=== PATIENT | female | born 1960 | race Caucasian/White ===

== ENCOUNTER 2018-04-09 06:12 | Inpatient (IN) | payer OTHER ==
[~2018-04-09] VITALS: Ht 175.3 cm; Wt 66.0 kg
[2018-04-09] VITALS (11 sets, daily range): BP systolic 87–136; BP diastolic 48–78; PULSE 4–70; RESP 12–20; TEMP 97.4–98.2; O2SAT 89–100
--- NOTE | 2018-04-09 07:10 | PD ---
HPI Chief Complaint: Pain: Acute or Chronic Time Seen by Provider: 07:04 Travel History International Travel<30 days: No Contact w/Intl Traveler<30days: No Traveled to known affect area: No History of Present Illness HPI This 57-year-old female is complaining of pain in the right flank and upper abdomen. She started having pain in the flank area yesterday around 1:00. It happened right after lunch. The pain was fairly persistent but not severe at that time. She has not taken Naprosyn tried some heat but it did not help. She was restless through the night. She says that at 5:00 this morning she woke up with increasing pain in the flank area and also the right upper quadrant. She has fairly persistent pain gets an occasional sharp pain that is quite severe. She has been nauseated but has not vomited. She has a history of tubal ligation and appendectomy. She has never had a kidney stone or gallbladder trouble. She says the pain is quite severe at this time and constant PFSH Past Medical History Hepatitis: Yes (HEP C: "I WAS CURED") Tetanus Vaccination: Unknown ?: Not Menopausal: Yes : 3 Para: 2 : 1 Ovarian Cysts: Yes Tubal Ligation: Yes Past Surgical History Surgical History: Unable to Obtain Appendectomy: Yes Eye Surgery: Yes (LASIK) Social History Alcohol Use: Yes ("A COUPLE OF TIMES A WEEK") Tobacco Use: Yes (11/05 PPD) Substance Use: No Allergies-Medications (Allergen,Severity, Reaction): Coded Allergies: No Known Allergies (Unverified , 04/09/18) Reported Meds & Prescriptions Reported Meds & Active Scripts Active No Active Prescriptions or Reported Medications Review of Systems Except as stated in HPI: all other systems reviewed are Neg General / Constitutional: No: Fever, Chills Eyes: No: Diploplia, Blurred Vision HENT: No: Headaches Cardiovascular: No: Chest Pain or Discomfort Respiratory: No: Cough, Shortness of Breath Gastrointestinal: Positive: Nausea, Abdominal Pain Genitourinary: Positive: Flank Pain Musculoskeletal: No: Myalgias, Arthralgias Skin: No Rash, No Itching Neurologic: No: Weakness, Dizziness Hematologic/Lymphatic: No: Easy Bruising Physical Exam Narrative GENERAL: Well-developed female. She is uncomfortable with pain SKIN: Focused skin assessment warm/dry. HEAD: Atraumatic. Normocephalic. EYES: Pupils equal and round. No scleral icterus. No injection or drainage. ENT: No nasal bleeding or discharge. Mucous membranes pink and moist. NECK: Trachea midline. No JVD. CARDIOVASCULAR: Regular rate and rhythm. No murmur appreciated. RESPIRATORY: No accessory muscle use. Clear to auscultation. Breath sounds equal bilaterally. GASTROINTESTINAL: Abdomen soft, there is some right upper quadrant and epigastric tenderness nondistended. Hepatic and splenic margins not palpable. MUSCULOSKELETAL: No obvious deformities. No clubbing. No cyanosis. No edema. NEUROLOGICAL: Awake and alert. No obvious cranial nerve deficits. Motor grossly within normal limits. Normal speech. PSYCHIATRIC: Appropriate mood and affect; insight and judgment normal. Data Data Last Documented VS Vital Signs Date Time Temp Pulse Resp B/P (MAP) Pulse Ox O2 Delivery O2 Flow Rate FiO2 04/09/18 09:30 69 18 93/48 (63) 96 Room Air 04/09/18 08:32 2.00 04/09/18 06:17 97.4 Orders Orders Complete Blood Count With Diff (04/09/18 07:04) Comprehensive Metabolic Panel (04/09/18 07:04) Lipase (04/09/18 07:04) Urinalysis - C+S If Indicated (04/09/18 07:04) Sodium Chlor 0.9% 1000 Ml Inj (Ns 1000 M (04/09/18 07:15) Ondansetron Inj (Zofran Inj) (04/09/18 07:15) Ketorolac Inj (Toradol Inj) (04/09/18 07:15) Hydromorphone Pf Inj (Dilaudid Pf Inj) (04/09/18 08:15) Ct Abd/Pel W Iv Contrast(Rout) (04/09/18 08:38) Urine Culture (04/09/18 08:10) Iohexol 350 Inj (Omnipaque 350 Inj) (04/09/18 09:19) Us Abdomen Gallbladder (04/09/18 09:59) Ceftriaxone Inj (Rocephin Inj) (04/09/18 10:15) Labs Laboratory Tests Test 04/09/18 07:17 04/09/18 08:10 White Blood Count 4.9 TH/MM3 Red Blood Count 4.29 MIL/MM3 Hemoglobin 14.4 GM/DL Hematocrit 42.4 % Mean Corpuscular Volume 98.9 FL Mean Corpuscular Hemoglobin 33.5 PG Mean Corpuscular Hemoglobin Concent 33.8 % Red Cell Distribution Width 12.4 % Platelet Count 170 TH/MM3 Mean Platelet Volume 8.8 FL Neutrophils (%) (Auto) 38.9 % Lymphocytes (%) (Auto) 41.0 % Monocytes (%) (Auto) 9.4 % Eosinophils (%) (Auto) 9.5 % Basophils (%) (Auto) 1.2 % Neutrophils # (Auto) 1.9 TH/MM3 Lymphocytes # (Auto) 1.9 TH/MM3 Monocytes # (Auto) 0.5 TH/MM3 Eosinophils # (Auto) 0.5 TH/MM3 Basophils # (Auto) 0.1 TH/MM3 CBC Comment DIFF FINAL Differential Comment Blood Urea Nitrogen 15 MG/DL Creatinine 0.67 MG/DL Random Glucose 112 MG/DL Total Protein 7.1 GM/DL Albumin 3.9 GM/DL Calcium Level 9.0 MG/DL Alkaline Phosphatase 45 U/L Aspartate Amino Transf (AST/SGOT) 14 U/L Alanine Aminotransferase (ALT/SGPT) 19 U/L Total Bilirubin 0.6 MG/DL Sodium Level 138 MEQ/L Potassium Level 4.1 MEQ/L Chloride Level 106 MEQ/L Carbon Dioxide Level 25.0 MEQ/L Anion Gap 7 MEQ/L Estimat Glomerular Filtration Rate 91 ML/MIN Lipase 222 U/L Urine Collection Type CLEAN CATCH Urine Color YELLOW Urine Turbidity CLEAR Urine pH 6.0 Urine Specific [place] 1.025 Urine Protein NEG mg/dL Urine Glucose (UA) NEG mg/dL Urine Ketones NEG mg/dL Urine Occult Blood NEG Urine Nitrite NEG Urine Bilirubin NEG Urine Urobilinogen 0.2 MG/DL Urine Leukocyte Esterase SMALL Urine RBC 0-3 /hpf Urine WBC 15-19 /hpf Urine Squamous Epithelial Cells 0-5 /hpf Urine Calcium Oxalate Crystals MANY /hpf Urine Bacteria FEW /hpf Microscopic Urinalysis Comment CULTURE INDICATED MDM Medical Decision Making Medical Screen Exam Complete: Yes Emergency Medical Condition: Yes Medical Record Reviewed: Yes Differential Diagnosis Differential includes renal colic, cholecystitis, Narrative Course Hemoglobin is 14 with a white count of 4.9. Liver function tests are normal. Lipase is 222. Urinalysis shows 15-[address] scan of the abdomen and pelvis was obtained. There is circumferential wall thickening involving the duodenum and proximal jejunum. Differential includes acute inflammatory infectious process versus infiltrative process such as lymphoma. I have discussed the case with Dr. Castillo Scripts No Active Prescriptions or Reported Meds Chidi Wright MD Apr 09, 2018 07:10
[2018-04-09] MEDS ORDERED: SODIUM CHLOR 0.9% 1000 ML INJ 1,000 ML IV ONE (07:15)
[2018-04-09] MEDS ORDERED: ONDANSETRON HCL 4 MG/2 ML VIAL IV PUSH ONE ×2 (07:15→10:30)
[2018-04-09] MEDS ORDERED: KETOROLAC TROMETHAMINE 30 MG/ML (IVP) VIAL IV PUSH ONE (07:15)
[2018-04-09 07:23] LABS: AUTOMATED NEUTROPHIL # 1.9 TH/MM3 (1.8-7.7); BASOPHIL # 0.1 TH/MM3 (0-0.2); BASOPHIL % 1.2 % (0.0-2.0); EOSINOPHIL # 0.5 TH/MM3 (0-0.4); EOSINOPHIL % 9.5 % (0.0-4.0); HEMATOCRIT 42.4 % (35.0-46.0); HEMOGLOBIN 14.4 GM/DL (11.6-15.3); LYMPHOCYTE # 1.9 TH/MM3 (1.0-4.8); MEAN CELL VOLUME 98.9 FL (80.0-100.0); MEAN CORPUSCULAR HEMOGLOBIN 33.5 PG (27.0-34.0); MEAN CORPUSCULAR HGB CONC 33.8 % (32.0-36.0); MEAN PLATELET VOLUME 8.8 FL (7.0-11.0); MONO % 9.4 % (0.0-8.0); MONOCYTE # 0.5 TH/MM3 (0-0.9); NEUT % 38.9 % (16.0-70.0); PLATELET COUNT 170 TH/MM3 (150-450); RED BLOOD COUNT 4.29 MIL/MM3 (4.00-5.30); RED CELL DISTRIBUTION WIDTH 12.4 % (11.6-17.2); WHITE BLOOD COUNT 4.9 TH/MM3 (4.0-11.0)
[2018-04-09 07:33] LABS: CHLORIDE 106 MEQ/L (98-107); SODIUM (NA) 138 MEQ/L (136-145)
[2018-04-09 07:37] LABS: ALBUMIN 3.9 GM/DL (3.4-5.0)
[2018-04-09 07:38] LABS: BLOOD UREA NITROGEN 15 MG/DL (7-18); GLUCOSE,RANDOM 112 MG/DL (74-106)
[2018-04-09 07:40] LABS: ALT (GPT) 19 U/L (10-53); AST (GOT) 14 U/L (15-37)
[2018-04-09 07:41] LABS: CREATININE 0.67 MG/DL (0.50-1.00); GLOMERULAR FILTRATION RATE 91 ML/MIN (>89)
[2018-04-09 07:42] LABS: TOTAL BILIRUBIN ADULT 0.6 MG/DL (0.2-1.0); TOTAL PROTEIN 7.1 GM/DL (6.4-8.2)
[2018-04-09 07:43] LABS: ALKALINE PHOSPHATASE 45 U/L (45-117)
[2018-04-09] MEDS ORDERED: HYDROmorphone HCL PF 2 MG/ML VIAL IV PUSH ONE (08:15)
[2018-04-09 08:27] LABS: BILIRUBIN, URINE NEG (NEG); BLOOD, URINE NEG (NEG); GLUCOSE,URINE NEG (NEG); KETONE, URINE NEG (NEG); NITRITE,URINE NEG (NEG); URINE COLOR YELLOW (YELLW/STRAW); URINE LEUKOCYTE ESTERASE SMALL (NEG)
[2018-04-09 08:33] LABS: BACTERIA, URINE FEW /hpf; CALCIUM OXALATE CRYSTALS,URINE MANY /hpf; RBC, URINE 0-3 /hpf (0-3); SQUAMOUS EPITHELIAL CELL URINE 0-5 /hpf (0-5); WBC, URINE 15-19 /hpf (0-5)
[2018-04-09] MEDS ORDERED: IOHEXOL 350 MG/ML 10 ML VIAL (for RAD DIAG) IVCONTRAST ONE (09:19)
--- NOTE | 2018-04-09 09:33 | RADRPT ---
EXAM DATE: 04/09/2018 9:20 AM EDT AGE/SEX: 57 years / Female INDICATIONS: Right flank and right upper quadrant pain. CLINICAL DATA: This is the patient's initial encounter. Patient reports that signs and symptoms have been present for 1 day and indicates a pain score of 8/10. MEDICAL/SURGICAL HISTORY: Hepatitis C. Ovarian cysts. Appendectomy. Tubal ligation. ORAL CONTRAST: No oral contrast ingested. RADIATION DOSE: 6.40 CTDI (mGy) COMPARISON: No prior exams available for comparison. TECHNIQUE: Multiple contiguous axial images were obtained through the abdomen and pelvis following b olus infusion of 90 ml Omnipaque 350 (iohexol) nonionic water-soluble contrast as a single exam dos e. No oral contrast ingested. Using automated exposure control and adjustment of the mA and/or kV ac cording to patient size, the radiation dose was kept as low as reasonably achievable to obtain optima l diagnostic quality images. FINDINGS: Lower Lungs: The visualized lower lungs are clear. Liver: The liver has a homogeneous density . Multiple hepatic cysts. The largest is in the dome measu ring 3.2 cm with Hounsfield units 6. There is no dilation of the biliary tree. Spleen: Homogeneous density without enlargement. Pancreas: Unremarkable without mass or calcification. Kidneys: Normal in size and shape. No evidence of mass or hydronephrosis. Adrenal Glands: Unremarkable. Aorta: The aorta and proximal iliac vessels are grossly unremarkable without aneurysmal dilation. Bowel/Mesentery: Circumferential wall thickening without surrounding inflammatory change involving t he duodenum and proximal jejunum. The remaining bowel loops are normal. Colon is unremarkable. No kristyn e air or free fluid. Stomach is unremarkable and nondilated. Abdominal Wall: Intact. Retroperitoneum: No evidence of adenopathy in the retrocrural, para-aortic, or deep pelvic regions. Bladder: Contours are smooth. Reproductive Organs: There is a dilated gonadal vein on the left measuring 11 mm with varicosities i nvolving the pelvis most pronounced on the left. No abnormal masses or calcifications seen. Inguinal: The inguinal region is unremarkable without evidence of adenopathy. Bony Structures: Unremarkable. CONCLUSION: 1. Circumferential wall thickening involving the duodenum and proximal jejunum. Differential diagnos tic considerations include an acute inflammatory or infectious process versus an infiltrating process such as lymphoma. I see no splenomegaly or adenopathy. 2. 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 Clinical evaluation for any signs of p elvic congestion syndrome suggested. 3. Hepatic cysts. Electronically signed by: Azam Landaverde MD 04/09/2018 9:31 AM EDT
[2018-04-09] MEDS ORDERED: cefTRIAXone INJ 1,000 MG in SODIUM CHLORIDE 0.9% INJ 100 ML IV ONE (10:15)
[2018-04-09] MEDS ORDERED: SENNOSIDES 8.6 MG TAB PO PRN (10:30)
[2018-04-09] MEDS ORDERED: NALOXONE HCL 0.4 MG/ML AMP IV PUSH PRN (10:30)
[2018-04-09] MEDS ORDERED: MORPHINE SULFATE 4 MG/ML INJ IV PUSH PRN (10:30)
[2018-04-09] MEDS ORDERED: SODIUM CHLORIDE 0.9% FLUSH 10 ML FLUSH IV FLUSH PRN (10:30)
[2018-04-09] MEDS ORDERED: MAGNESIUM HYDROXIDE SUSP 30 ML CUP PO PRN (10:30)
[2018-04-09] MEDS ORDERED: LACTULOSE SYRUP 20 GM/30 ML CUP PO PRN (10:30)
[2018-04-09] MEDS ORDERED: BISACODYL 10 MG SUPP RECTAL PRN (10:30)
[2018-04-09] MEDS ORDERED: ACETAMINOPHEN/HYDROcodone 325 MG/10 MG TAB PO PRN (10:30)
[2018-04-09] MEDS ORDERED: SODIUM CHLORID 0.9% 500 ML INJ 500 ML IV ONE (11:00)
[2018-04-09] MEDS ORDERED: METOCLOPRAMIDE HCL 10 MG/2 ML VIAL IV PUSH PRN (11:00)
[2018-04-09] MEDS: SODIUM CHLOR 0.9% 1000 ML INJ 1,000 ML IV SCH ×2 (11:33→21:00)
--- NOTE | 2018-04-09 11:37 | RADRPT ---
EXAM DATE: 04/09/2018 11:34 AM EDT AGE/SEX: 57 years / Female INDICATIONS: Right upper quadrant pain. CLINICAL DATA: This is the patient's initial encounter. Patient reports that signs and/or symptoms h ave been present for 1 day and indicates a pain score of 7/10. MEDICAL/SURGICAL HISTORY: Hepatitis C. Ovarian cysts. Appendectomy. Tubal ligation. COMPARISON: No prior exams available for comparison. MEASUREMENTS (cm x cm x cm): Liver:__ 17.3 cm length Common Bile Duct:__ 3mm FINDINGS: Liver: 15 mm cyst in the right lobe of the liver. No suspicious mass. No biliary ductal dilatation. Portal Vein: Hepatopedal flow seen in portal vein. Common Duct: No intraluminal mass or stone visualized. Gallbladder: Demonstrates no wall thickening or pericholecystic fluid. No stones visualized. Pancreas: The visualized portions are within normal limits Right Kidney: No mass or hydronephrosis Other: None. CONCLUSION: Small right lobe liver cyst. Otherwise unremarkable. Electronically signed by: Lawson Shaikh MD 04/09/2018 11:36 AM EDT
[2018-04-09] MEDS: PANTOPRAZOLE SODIUM 40 MG VIAL IV PUSH SCH (13:00)
--- NOTE | 2018-04-09 16:12 | HHI.HP ---
[facility] Primary Care Physician No Primary Care Physician Admission Diagnosis ABDOMINAL PAIN Diagnoses: Travel History International Travel<30 Days: No Contact w/Intl Traveler <30 Da: No Traveled to Known Affected Are: No History of Present Illness 57-year-old female with a history of appendectomy, who presents with onset of sharp constant right-sided flank pain worse with movement around 1 PM yesterday. She then took 500 mg of naproxen by mouth twice last night. She woke up this morning with continued constant right-sided flank pain, as well as epigastric pain. She reports nausea upon waking this morning, however this has resolved after self-induced emesis. Denies any hemoptysis. Denies any constipation or diarrhea. Denies any dysuria. Denies any fevers, however did get a sunburn yesterday and has been having some chills secondary to this. Review of Systems Except as stated in HPI: all other systems reviewed are Neg Past Family Social History Past Medical History Patient denies any significant past medical history Past Surgical History History of Lasix eye surgery. Bilateral tubal ligation. Appendectomy. Reported Medications Patient does not take any regular medications. She did take naproxen last night. Allergies: Coded Allergies: No Known Allergies (Unverified , 04/09/18) Family History Patient was adopted Social History Patient smokes one half pack per day for the past 40 years Patient drinks 2 drinks per day. Denies any history of alcohol abuse. Denies alcohol withdrawal symptoms. Denies any illicit drug use. Physical Exam Vital Signs Vital Signs Date Time Temp Pulse Resp B/P (MAP) Pulse Ox O2 Delivery O2 Flow Rate FiO2 04/09/18 13:24 98.2 70 20 93/48 (63) 100 04/09/18 11:48 04/09/18 11:40 46 18 87/56 (66) 97 Room Air 04/09/18 11:25 44 18 91/54 (66) 98 Room Air 04/09/18 11:00 64 17 87/59 (68) 99 Room Air 04/09/18 09:30 69 18 93/48 (63) 96 Room Air 04/09/18 08:48 97 Room Air 04/09/18 08:32 96 Nasal Cannula 2.00 04/09/18 08:30 56 12 100/62 (75) 89 Room Air 04/09/18 07:34 61 16 128/78 (95) 99 Room Air 04/09/18 06:17 97.4 63 14 136/78 (97) 99 Physical Exam GENERAL: This is a well-nourished, well-developed patient, in no apparent distress. Alert and oriented 3. SKIN: No rashes, ecchymoses or lesions. Cool and dry. HEAD: Atraumatic. Normocephalic. No temporal or scalp tenderness. EYES: Pupils equal round and reactive. Extraocular motions intact. No scleral icterus. No injection or drainage. ENT: Nose without bleeding, purulent drainage or septal hematoma. Throat without erythema, tonsillar hypertrophy or exudate. Uvula midline. Airway patent. NECK: Trachea midline. No JVD or lymphadenopathy. Supple, nontender, no meningeal signs. CARDIOVASCULAR: Regular rate and rhythm without murmurs, gallops, or rubs. RESPIRATORY: Clear to auscultation. Breath sounds equal bilaterally. No wheezes , rales, or rhonchi. GASTROINTESTINAL: Abdomen soft, non-tender, nondistended. No hepato-splenomegaly , or palpable masses. No guarding. MUSCULOSKELETAL: Extremities without clubbing, cyanosis, or edema. No joint tenderness, effusion, or edema noted. No calf tenderness. Negative Homans sign bilaterally. NEUROLOGICAL: Awake and alert. Cranial nerves II through XII intact. Motor and sensory grossly within normal limits. Five out of 5 muscle strength in all muscle groups. Normal speech. Laboratory Laboratory Tests Test 04/09/18 07:17 04/09/18 08:10 White Blood Count 4.9 Red Blood Count 4.29 Hemoglobin 14.4 Hematocrit 42.4 Mean Corpuscular Volume 98.9 Mean Corpuscular Hemoglobin 33.5 Mean Corpuscular Hemoglobin Concent 33.8 Red Cell Distribution Width 12.4 Platelet Count 170 Mean Platelet Volume 8.8 Neutrophils (%) (Auto) 38.9 Lymphocytes (%) (Auto) 41.0 Monocytes (%) (Auto) 9.4 Eosinophils (%) (Auto) 9.5 Basophils (%) (Auto) 1.2 Neutrophils # (Auto) 1.9 Lymphocytes # (Auto) 1.9 Monocytes # (Auto) 0.5 Eosinophils # (Auto) 0.5 Basophils # (Auto) 0.1 CBC Comment DIFF FINAL Differential Comment Blood Urea Nitrogen 15 Creatinine 0.67 Random Glucose 112 Total Protein 7.1 Albumin 3.9 Calcium Level 9.0 Alkaline Phosphatase 45 Aspartate Amino Transf (AST/SGOT) 14 Alanine Aminotransferase (ALT/SGPT) 19 Total Bilirubin 0.6 Sodium Level 138 Potassium Level 4.1 Chloride Level 106 Carbon Dioxide Level 25.0 Anion Gap 7 Estimat Glomerular Filtration Rate 91 Lipase 222 Urine Collection Type CLEAN CATCH Urine Color YELLOW Urine Turbidity CLEAR Urine pH 6.0 Urine Specific [place] 1.025 Urine Protein NEG Urine Glucose (UA) NEG Urine Ketones NEG Urine Occult Blood NEG Urine Nitrite NEG Urine Bilirubin NEG Urine Urobilinogen 0.2 Urine Leukocyte Esterase SMALL Urine RBC 0-3 Urine WBC 15-19 Urine Squamous Epithelial Cells 0-5 Urine Calcium Oxalate Crystals MANY Urine Bacteria FEW Microscopic Urinalysis Comment CULTURE INDICATED Date/Time Source Procedure Growth Status 04/09/18 08:10 Urine Clean Catch Urine Culture Pending Received Result Diagram: 04/09/18 0717 04/09/18 0717 Caprini VTE Risk Assessment Caprini VTE Risk Assessment: No/Low Risk (score <= 1) Caprini Risk Assessment Model Point Value = 1 Point Value = 2 Point Value = 3 Point Value = 5 Age 41-60 Minor surgery BMI > 25 kg/m2 Swollen legs Varicose veins or History of unexplained or recurrent spontaneous Oral contraceptives or hormone replacement Sepsis (< 1 month) Serious lung disease, including pneumonia (< 1 month) Abnormal pulmonary function Acute myocardial infarction Congestive heart failure (< 1 month) History of inflammatory bowel disease Medical patient at bed rest Age 61-74 Arthroscopic surgery Major open surgery (> 45 min) Laparoscopic surgery (> 45 min) Malignancy Confined to bed (> 72 hours) Immobilizing plaster cast Central venous access Age >= 75 History of VTE Family history of VTE Factor V Leiden Prothrombin [id number] Lupus anticoagulant Anticardiolipin antibodies Elevated serum homocysteine Heparin-induced thrombocytopenia Other congenital or acquired thrombophilia Stroke (< 1 month) Elective arthroplasty Hip, pelvis, or leg fracture Acute spinal cord injury (< 1 month) Prophylaxis Regimen Total Risk Factor Score Risk Level Prophylaxis Regimen 0-1 Low Early ambulation 2 Moderate Order ONE of the following: *Sequential Compression Device (SCD) *Heparin 5000 units SQ BID 3-4 Higher Order ONE of the following medications: *Heparin 5000 units SQ TID *Enoxaparin/Lovenox 40 mg SQ daily (WT < 150 kg, CrCl > 30 mL/min) *Enoxaparin/Lovenox 30 mg SQ daily (WT < 150 kg, CrCl > 10-29 mL/min) *Enoxaparin/Lovenox 30 mg SQ BID (WT < 150 kg, CrCl > 30 mL/min) AND/OR *Sequential Compression Device (SCD) 5 or more Highest Order ONE of the following medications: *Heparin 5000 units SQ TID (Preferred with Epidurals) *Enoxaparin/Lovenox 40 mg SQ daily (WT < 150 kg, CrCl > 30 mL/min) *Enoxaparin/Lovenox 30 mg SQ daily (WT < 150 kg, CrCl > 10-29 mL/min) *Enoxaparin/Lovenox 30 mg SQ BID (WT < 150 kg, CrCl > 30 mL/min) AND *Sequential Compression Device (SCD) Assessment and Plan Assessment and Plan //Suspected acute gastroenteritis With duodenal/jejunal inflammation. Patient notified of possible lymphoma diagnosis, however suspect this is unlikely at this time. = We will treat with levofloxacin and Flagyl. Chose levofloxacin in lieu of Cipro due to prolonged QTc. = GI consult pending. //Tobacco abuse. Cessation counseling provided. //Incidental finding of venous congestion pelvis on imaging. This is likely chronic and appears to be asymptomatic. Have discussed with the patient who will discuss findings with her primary care doctor. //Hypotension. With systolic blood pressures in the 80s following Dilaudid administration. Avoid IV narcotics. Close monitoring. Discussed Condition With Patient, nurse. Moses Isaacs MD Apr 09, 2018 16:12
[2018-04-09] MEDS: metroNIDAZOLE 500 MG TAB PO SCH ×2 (16:41→21:09)
[2018-04-09] MEDS: LEVOFLOXACIN 750 MG TAB PO SCH (16:41)
[2018-04-09] MEDS: DOCUSATE SODIUM 50 MG/SENNA 8.6 MG TAB PO SCH (21:00)
[2018-04-09] MEDS: SODIUM CHLORIDE 0.9% FLUSH 10 ML FLUSH IV FLUSH SCH (21:00)
[2018-04-10] MEDS: PANTOPRAZOLE SODIUM 40 MG VIAL IV PUSH SCH ×2 (01:39→13:33)
[2018-04-10] MEDS: ACETAMINOPHEN/HYDROcodone 325 MG/7.5 MG TAB PO PRN ×2 (01:51→13:33)
[2018-04-10 03:05] VITALS: BP 96/54; PULSE 49; RESP 16; TEMP 98.2; O2SAT 96
[2018-04-10 04:42] LABS: ALT (GPT) 16 U/L (10-53); AST (GOT) 11 U/L (15-37); BICARBONATE 26.1 MEQ/L (21.0-32.0); BLOOD UREA NITROGEN 8 MG/DL (7-18); CALCIUM 8.4 MG/DL (8.5-10.1); CHLORIDE 109 MEQ/L (98-107); CREATININE 0.69 MG/DL (0.50-1.00); GLOMERULAR FILTRATION RATE 88 ML/MIN (>89); GLUCOSE,RANDOM 103 MG/DL (74-106); SODIUM (NA) 143 MEQ/L (136-145)
[2018-04-10 04:44] LABS: ALKALINE PHOSPHATASE 37 U/L (45-117); TOTAL BILIRUBIN ADULT 0.6 MG/DL (0.2-1.0); TOTAL PROTEIN 5.6 GM/DL (6.4-8.2)
[2018-04-10 04:45] LABS: AUTOMATED NEUTROPHIL # 1.6 TH/MM3 (1.8-7.7); BASOPHIL % 0.7 % (0.0-2.0); EOSINOPHIL # 0.3 TH/MM3 (0-0.4); EOSINOPHIL % 6.4 % (0.0-4.0); HEMATOCRIT 35.2 % (35.0-46.0); HEMOGLOBIN 12.1 GM/DL (11.6-15.3); LYMPH % 42.2 % (9.0-44.0); LYMPHOCYTE # 1.7 TH/MM3 (1.0-4.8); MEAN CELL VOLUME 99.5 FL (80.0-100.0); MEAN CORPUSCULAR HEMOGLOBIN 34.3 PG (27.0-34.0); MEAN CORPUSCULAR HGB CONC 34.5 % (32.0-36.0); MEAN PLATELET VOLUME 8.5 FL (7.0-11.0); MONOCYTE # 0.4 TH/MM3 (0-0.9); NEUT % 39.7 % (16.0-70.0); PLATELET COUNT 122 TH/MM3 (150-450); RED BLOOD COUNT 3.54 MIL/MM3 (4.00-5.30); RED CELL DISTRIBUTION WIDTH 12.5 % (11.6-17.2)
[2018-04-10] MEDS: metroNIDAZOLE 500 MG TAB PO SCH ×2 (06:15→13:33)
[2018-04-10] MEDS: SODIUM CHLOR 0.9% 1000 ML INJ 1,000 ML IV SCH (07:00)
[2018-04-10 07:15] VITALS: BP 100/58; PULSE 53; RESP 18; TEMP 98.5; O2SAT 95
[2018-04-10] MEDS: LEVOFLOXACIN 750 MG TAB PO SCH (09:05)
[2018-04-10] MEDS: DOCUSATE SODIUM 50 MG/SENNA 8.6 MG TAB PO SCH (09:05)
[2018-04-10] MEDS: SODIUM CHLORIDE 0.9% FLUSH 10 ML FLUSH IV FLUSH SCH (09:06)
--- NOTE | 2018-04-10 09:23 | HHI.PR ---
Subjective Remarks Patient says she is feeling better. Reports that nausea is improved. Still with some right flank pain, however has improved. Denies dysuria. Denies any lightheadedness or dizziness. Objective Vital Signs Date Time Temp Pulse Resp B/P (MAP) Pulse Ox O2 Delivery O2 Flow Rate FiO2 04/10/18 07:15 98.5 53 18 100/58 (72) 95 04/10/18 03:05 98.2 49 16 96/54 (68) 96 04/09/18 23:04 98.1 66 16 89/51 (64) 96 04/09/18 19:26 56 16 102/60 (74) 99 04/09/18 15:01 99/61 (74) 04/09/18 13:24 98.2 70 20 93/48 (63) 100 04/09/18 11:48 04/09/18 11:40 46 18 87/56 (66) 97 Room Air 04/09/18 11:25 44 18 91/54 (66) 98 Room Air 04/09/18 11:00 64 17 87/59 (68) 99 Room Air 04/09/18 09:30 69 18 93/48 (63) 96 Room Air I/O 04/09/18 04/09/18 04/09/18 04/10/18 04/10/18 04/10/18 07:00 15:00 23:00 07:00 15:00 23:00 Intake Total 1090 ml 200 ml Balance 1090 ml 200 ml Intake IV Total 1090 ml 200 ml Result Diagram: 04/10/18 03304/10/18 033 Objective Remarks GENERAL: Patient sitting up in bed. Appears comfortable. SKIN: Warm and dry. HEAD: Normocephalic. EYES: No scleral icterus. No injection or drainage. NECK: Supple, trachea midline. No JVD. CARDIOVASCULAR: Regular rate and rhythm without murmurs, gallops, or rubs. RESPIRATORY: Breath sounds equal bilaterally. No accessory muscle use. GASTROINTESTINAL: Abdomen soft, non-tender, nondistended. Positive bowel sounds. MUSCULOSKELETAL: No cyanosis, or edema. BACK: Nontender without obvious deformity. No CVA tenderness. A/P Assessment and Plan //Suspected acute gastroenteritis With duodenal/jejunal inflammation. Patient notified of possible lymphoma diagnosis, however suspect this is unlikely at this time. = We will treat with levofloxacin and Flagyl. Chose levofloxacin in lieu of Cipro due to prolonged QTc. = Follow-up GI recommendations. //Tobacco abuse. Cessation counseling provided. //Incidental finding of venous congestion pelvis on imaging. This is likely chronic and appears to be asymptomatic. Have discussed with the patient who will discuss findings with her primary care doctor. //Thrombocytopenia =plt 122. This is likely dilutional as all cell lines are down. No signs of bleeding //Hypotension. With systolic blood pressures in the 80s following Dilaudid administration. Avoid IV narcotics. Close monitoring. = Blood pressure still borderline low, however likely functional. Discharge Planning Ending GI evaluation Moses Isaacs MD Apr 10, 2018 09:23
--- NOTE | 2018-04-10 11:56 | PD.CONS ---
HPI History of Present Illness This is a 57 year old slim female who was admitted to the hospital on 04/09/2018 with acute onset of symptoms in the past 24 hours of sharp right-sided back pain that radiated around into her right lower quadrant then into her left lower quadrant. Patient states she took 1 dose of naproxen which may have initiated her epigastric pain. patient also noted some epigastric pain after lower abdominal symptoms persisted with nausea and self induced emesis 1. On exam patient has no epigastric tenderness and states that the pain is resolved. Patient does note some dyspepsia approximately a year ago which was related to stressful events but took no meds. Patient states that when her stress was resolved the pain also resolved completely. Patient currently denies any diarrhea or constipation or changes in her stools, denies any current rectal bleeding or hematemesis. Patient has had 2 colonoscopies in the past for history of polyps last colonoscopy was approximately 4-5 years ago. Patient has had no previous EGD and denies any family history of colon cancer. Patient states she drinks an increased amount of sodas, and is currently on vacation in this area. Patient is currently requesting to be able to return back to her GI physician for further workup or testing. Labs include hemoglobin 12.1, WBC count 4, AST 11, ALT [address] scan shows wall thickening involving the duodenum and proximal jejunum inflammatory versus infiltrating process such as lymphoma. I see no splenomegaly or adenopathy. Hepatic cyst are noted and also noted on ultrasound gallbladder. (Mayra Dhillon) PFSH Past Medical History Patient denies any significant past medical history Past Surgical History History of Lasix eye surgery. Bilateral tubal ligation. Appendectomy. (Mayra Dhillon) Coded Allergies: No Known Allergies (Unverified , 04/09/18) Medications Administered Medications Medications (Trade) Dose Ordered Sig/Norma Route PRN Reason Start Time Stop Time Status Last Admin Dose Admin Sodium Chloride 1,000 ml @ 100 mls/hr Q10H IV 04/09/18 11:00 04/09/18 11:33 Sodium Chloride (NS Flush) 2 ml BID IV FLUSH 04/09/18 21:00 04/10/18 09:06 Metoclopramide HCl (Reglan Inj) 5 mg Q6H PRN IV PUSH NAUSEA OR VOMITING 04/09/18 11:00 04/09/18 16:41 Senna/Docusate Sodium (Valery-Colace) 1 tab BID PO 04/09/18 21:00 04/10/18 09:05 Acetaminophen/ Hydrocodone Bitart ([place] 7.5-325 Mg) 1 tab Q4H PRN PO PAIN SCALE 3 TO 6 04/09/18 10:30 04/10/18 01:51 Pantoprazole Sodium (Protonix Inj) 40 mg Q12H IV PUSH 04/09/18 13:00 04/10/18 01:39 Levofloxacin (Levaquin) 750 mg DAILY PO 04/09/18 16:00 04/10/18 09:05 Metronidazole (Flagyl) 500 mg Q8HR PO 04/09/18 16:00 04/10/18 06:15 Family History Patient was adopted No known family history of colon cancer Social History Patient smokes one half pack per day for the past 40 years Patient drinks 2 drinks per day. Denies any history of alcohol abuse. Denies alcohol withdrawal symptoms. Denies any illicit drug use. (Mayra Dhillon) Review of Systems Gastrointestinal: COMPLAINS OF: Abdominal pain (Right lower and left lower quadrant, initial pain started in right flank back area), Nausea (Mayra Dhillon) GI Exam Vitals I&O Vital Signs Date Time Temp Pulse Resp B/P (MAP) Pulse Ox O2 Delivery O2 Flow Rate FiO2 04/10/18 07:15 98.5 53 18 100/58 (72) 95 04/10/18 03:05 98.2 49 16 96/54 (68) 96 04/09/18 23:04 98.1 66 16 89/51 (64) 96 04/09/18 19:26 56 16 102/60 (74) 99 04/09/18 15:01 99/61 (74) 04/09/18 13:24 98.2 70 20 93/48 (63) 100 I/O 04/09/18 04/09/18 04/09/18 04/10/18 04/10/18 04/10/18 07:00 15:00 23:00 07:00 15:00 23:00 Intake Total 1090 ml 200 ml 500 ml Balance 1090 ml 200 ml 500 ml Intake IV Total 1090 ml 200 ml 500 ml Imaging Last Impressions Gall Bladder Ultrasound 04/09/18 0999 Signed Impressions: CONCLUSION: Small right lobe liver cyst. Otherwise unremarkable. Abdomen/Pelvis CT 04/09/18 0868 Signed Impressions: CONCLUSION: 1. Circumferential wall thickening involving the duodenum and proximal jejunum . Differential diagnostic considerations include an acute inflammatory or infec tious process versus an infiltrating process such as lymphoma. I see no splenom egaly or adenopathy. 2. 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 Clinical evaluat ion for any signs of pelvic congestion syndrome suggested. 3. Hepatic cysts. Laboratory Test 04/10/18 03:32 White Blood Count 4.0 TH/MM3 Red Blood Count 3.54 MIL/MM3 Hemoglobin 12.1 GM/DL Hematocrit 35.2 % Mean Corpuscular Volume 99.5 FL Mean Corpuscular Hemoglobin 34.3 PG Mean Corpuscular Hemoglobin Concent 34.5 % Red Cell Distribution Width 12.5 % Platelet Count 122 TH/MM3 Mean Platelet Volume 8.5 FL Neutrophils (%) (Auto) 39.7 % Lymphocytes (%) (Auto) 42.2 % Monocytes (%) (Auto) 11.0 % Eosinophils (%) (Auto) 6.4 % Basophils (%) (Auto) 0.7 % Neutrophils # (Auto) 1.6 TH/MM3 Lymphocytes # (Auto) 1.7 TH/MM3 Monocytes # (Auto) 0.4 TH/MM3 Eosinophils # (Auto) 0.3 TH/MM3 Basophils # (Auto) 0.0 TH/MM3 CBC Comment DIFF FINAL Differential Comment Blood Urea Nitrogen 8 MG/DL Creatinine 0.69 MG/DL Random Glucose 103 MG/DL Total Protein 5.6 GM/DL Albumin 3.0 GM/DL Calcium Level 8.4 MG/DL Alkaline Phosphatase 37 U/L Aspartate Amino Transf (AST/SGOT) 11 U/L Alanine Aminotransferase (ALT/SGPT) 16 U/L Total Bilirubin 0.6 MG/DL Sodium Level 143 MEQ/L Potassium Level 4.2 MEQ/L Chloride Level 109 MEQ/L Carbon Dioxide Level 26.1 MEQ/L Anion Gap 8 MEQ/L Estimat Glomerular Filtration Rate 88 ML/MIN Date/Time Source Procedure Growth Status 04/09/18 08:10 Urine Clean Catch Urine Culture Pending Received Physical Examination HEENT: General slim build normocephalic; atraumatic; no jaundice. Throat is clear. NECK: Neck is supple, no JVD, no lymphadenopathy. CHEST: Chest is clear to auscultation and percussion. CARDIAC: Regular rate and rhythm ABDOMEN: Soft, nondistended, nontender; no hepatosplenomegaly; bowel sounds are present in all four quadrants. No epigastric tenderness EXTREMITIES: No clubbing, cyanosis, or edema. SKIN: Normal; no rash; no jaundice. PROGRAM STRATEGIST: No focal deficits; alert and oriented times three. (Mayra Dhillon) Assessment and Plan Plan Burning right flank back pain radiated around to the right lower quadrant and left lower quadrant. Seem to be worse with movement and patient states recent heavy lifting of luggage. Patient took naproxen and noted epigastric discomfort with nausea and self-induced vomiting which has now resolved. Patient has a history of colonoscopy 2 for polyps no EGD in the past. No family history of colon cancer and patient does note an increased amount of sodas daily. Patient is on vacation and is requesting to follow-up with her physician when she gets home . CT scan shows wall thickening of the duodenum and proximal jejunum possible inflammatory versus infiltrating process such as lymphoma no adenopathy seen. Hepatic cyst small. Plan Maintain n.p.o. for now Consider EGD or colonoscopy but patient is requesting to follow-up when she gets back home Levaquin Flagyl PPI Monitor labs and patient's symptoms Further recommendations to follow after visit with Dr. Quintero Patient was seen per myself and Dr. Quintero, this note was written on his behalf (Mayra Dhillon) Physician Comments Agree with above assessment and plan. Thank you for the consult. (Natty Quintero MD) Mayra Dhillon Apr 10, 2018 11:56 Natty Quintero MD Apr 10, 2018 14:13
[2018-04-10 12:43] VITALS: BP 133/64; PULSE 56; RESP 18; TEMP 98.9; O2SAT 99
[2018-04-10] MEDS ORDERED: METR-1 PO (13:31)
[2018-04-10] MEDS ORDERED: LEVA750T9 PO (13:31)
[2018-04-10] MEDS ORDERED: PANT20TA2 PO (13:31)
--- NOTE | 2018-04-10 15:05 | EKG ---
Date Performed: 04/09/2018 Time Performed: 15:40:08 PTAGE: 57 years EKG: SINUS BRADYCARDIA POSSIBLE LEFT ATRIAL ENLARGEMENT BORDERLINE ECG INTERPRETATION BASED ON A DEFAULT AGE OF 42 YEARS NO PREVIOUS TRACING DOCTOR: Clovis Puckett Interpretating Date/Time 04/10/2018 15:04:42
--- NOTE | 2018-04-11 15:15 | EKG ---
Date Performed: 04/09/2018 Time Performed: 11:26:07 PTAGE: 57 years EKG: SINUS BRADYCARDIA WITH FIRST DEGREE AV BLOCK POSSIBLE LEFT ATRIAL ENLARGEMENT ABNORMAL ECG INTERPRETATION BASED ON A DEFAULT AGE OF 40 YEARS NO PREVIOUS TRACING Since the previous tracing, no significant change noted DOCTOR: Clovis Puckett Interpretating Date/Time 04/11/2018 15:12:38
== END 2018-04-10 14:01 | disposition home or self-care (01) | DRG 392 ==
LOC: PHED 06:12 → OBSVTOIN 10:27 → PHEDA 10:27 → NEPGCP 12:20 → UNDODISOB 04-10 14:01
PROVIDERS: ADMIT Internal Medicine; ATTEND Internal Medicine
DX: K52.9 Noninfective gastroenteritis and colitis, unspecified (principal); D69.6 Thrombocytopenia, unspecified; I95.9 Hypotension, unspecified; K76.89 Other specified diseases of liver; K29.80 Duodenitis without bleeding; M54.9 Dorsalgia, unspecified; I87.8 Other specified disorders of veins; F17.210 Nicotine dependence, cigarettes, uncomplicated; Z98.51 Tubal ligation status; Z86.19 Personal history of other infectious and parasitic diseases; Z90.49 Acquired absence of other specified parts of digestive tract; Z86.010 Personal history of colon polyps
CPT/HCPCS: 74177; 76705; 80053; 81001; 83690; 85025; 87086; 93005; 96361; 96374; 96375; C9113; J0696; J1170; J1885; J2405; J2765; J7030; J7040; Q9967